=== PATIENT | male | born 1950 | race Caucasian/White ===

== ENCOUNTER 2019-02-26 06:43 | Inpatient (IN) | payer MEDICARE, BC ==
[~2019-02-26 06:43] MED LIST: CELECOXIB 100 MG CAPSULE PO ONE; FAMOTIDINE 20MG TABLET PO ONE; MECLIZINE 25 MG TABLET PO ONE; METOCLOPRAMIDE 10 MG TABLET PO ONE; VANCOMYCIN HCL 1,000 MG in DEXTROSE 5 % IN WATER 250 ML IVPB ONE
[2019-02-26 07:29] LABS: ABO GROUP A; RH TYPE NEGATIVE
[2019-02-26 07:39] LABS: ANTIBODY SCREEN NEGATIVE (NEGATIVE)
[2019-02-26] MEDS ORDERED: RINGERS SOLUTION,LACTATED 1,000 ML IV ONE ×3 (07:40→10:40)
[2019-02-26] MEDS ORDERED: BUPIVACAINE 0.5% W/EPI MPF 30 ML VIAL SQ ONE (09:47)
[2019-02-26] MEDS ORDERED: ACETAMINOPHEN 325 MG TAB PO PRN (11:19)
[2019-02-26] MEDS ORDERED: ONDANSETRON HCL IV 4 MG/2 ML VIAL IVP PRN (11:19)
[2019-02-26] MEDS ORDERED: AL HYDROX/MAG HYDROX 30ML UD PO PRN (11:19)
[2019-02-26] MEDS ORDERED: MAGNESIUM HYDROXIDE 30 ML UDC PO PRN (11:19)
[2019-02-26] MEDS ORDERED: TRAMADOL HCL 50 MG TABLET PO PRN (11:19)
[2019-02-26] MEDS ORDERED: NALOXONE 0.4 MG/1 ML VIAL IVP PRN (11:19)
[2019-02-26] MEDS ORDERED: DIPHENHYDRAMINE HCL 25 MG CAPSULE PO PRN (11:19)
[2019-02-26] MEDS ORDERED: HYDROMORPHONE HCL 2 MG/ML VIAL IM PRN (11:19)
[2019-02-26] MEDS ORDERED: KETOROLAC 30 MG/ML VIAL IVP PRN ×2 (11:19)
[2019-02-26] MEDS ORDERED: ACETAMINOPHEN W/ CODEINE 300MG/60MG TABLET PO PRN ×2 (11:19)
[2019-02-26] MEDS ORDERED: ZOLPIDEM TARTRATE 5 MG TABLET PO PRN (11:19)
[2019-02-26] MEDS ORDERED: HYDROCODONE/APAP 7.5/325MG TABLET PO PRN ×2 (11:19)
[2019-02-26] MEDS ORDERED: BISACODYL 10 MG SUPP RC PRN (11:19)
[2019-02-26] MEDS ORDERED: PANTOPRAZOLE SODIUM 40 MG TABLET PO PRN (12:31)
[2019-02-26] MEDS ORDERED: MELATONIN 5 MG TABLET PO PRN (12:31)
[2019-02-26] MEDS ORDERED: 0.9 % SODIUM CHLORIDE 10 ML VIAL IVP ONE ×2 (13:57→14:00)
[2019-02-26] MEDS ORDERED: ROPIVACAINE HCL (NAROPIN) /PF 5MG/ML 20ML VIAL IV ONE (13:57)
[2019-02-26] MEDS ORDERED: DEXAMETHASONE 4 MG/ML 1ML VIAL IVP ONE (13:57)
[2019-02-26] MEDS ORDERED: LIDOCAINE 2% MDV (20MG/ML) 20ML VIAL IV ONE (14:00)
[2019-02-26] MEDS ORDERED: MIDAZOLAM HCL 2MG/2ML VIAL IV ONE (14:00)
[2019-02-26] MEDS ORDERED: TRANEXAMIC ACID 1,000 MG/10 ML ML IV ONE ×2 (14:00→16:07)
[2019-02-26] MEDS ORDERED: PROPOFOL 10 MG/ML VIAL IV ONE (14:00)
[2019-02-26] MEDS: MIDODRINE HCL 5 MG TABLET PO SCH ×2 (15:06→22:24)
--- NOTE | 2019-02-26 15:06 | Rehab Evaluation ---
Patient Information - Patient Information Diagnosis: DJD R Hip Ordered Treatment: PT Evaluate and Treat Status: Initial Evaluation Surgery: Yes (R URBAN) Date of Surgery: 02/26/19 Past Medical/Surgical Hx: PAST MEDICAL/SURGICAL HISTORY Past Surgical History LEFT SHOULDER REPLACEMENT 12-07-18 HELLERS MYOTOMY 2018 TURP LIPOMA? 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 RTKA LEFT SHOULDER SCOPES X'S 2 RIGHT SHOULDER SCOPE LEFT ANKLE AND FOOT SX PMH - Respiratory Hx Respiratory Disorders Yes Hx Bronchitis Yes: NOTHING RECENT Hx Pneumonia Yes: 30 YRS AGO PMH - Cardiovascular Hx Cardiovascular Disorders Yes Hx Cardiac Catheterization Yes Hx Hypotension Yes: BLOOD PRESSURE RUNS LOW ON MEDS TO STABALIZE IT WITH GOOD CONTROL Hx Heart Murmur Yes Hx of Mitral Valve Prolapse Yes: MONITORED YEARLY NO ISSUES Exercise Tolerance Good Comment: PT HAS HAD SYNCOPAL EPISODES FROM HYPOTENSION NOTHING LATELY SINCE ON MEDS PMH - Neuro Hx Neurological Disorders Yes Hx Speech Problem Yes: SLOW SPEECH STUTTERS SOME PMH - GI Hx Gastrointestinal Disorders Yes Hx Gastroesophageal Reflux Yes: ONCE IN A WHILE Hx Ulcer Yes: 25 YRS AGO Comment: PT W GASTRIC SLEEVE DEVELOPED PROBS WHERE HE COULDNT EAT HAD HELLERS MYOTOM PMH - Hx Genitourinary Disorders Yes Hx Prostate Problems Yes: BPH HAD TURP HAS TO SELF CATH AT TIMES Hx Renal Disease Yes: HX ACUTE RENAL FAILURE 1 1/2 YRS AGO D/T 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 Patient has 2 steps in the garage to enter the home with no railings. Patient also reports that he has a basement with 10-12 steps without a railing but does not use the basement. Patient reports that bathroom that he is utilizing has a walk in shower with a shower chair; however, there are no grab bars. Patient reports that the toilet is standard height with no grab bars. Patient reports that he has a 2-wheeled walker and 2 canes that he keeps in the trunk of his SUV. Patient plans on leaving in [facility] following discharge. Currently no physical therapy following discharge is set at this time.) Precautions: Other (Total hip precautions) - Time With Patient Total Time Spent With Patient (Min): 15 Subjective Information - Subjective Information Per Patient (Patient reported that he was not experiencing any pain, lightheadedness, or dizziness upon evaluation. Patient did report that he was slightly numb on right foot during initial encounter at 2:30 p.m. Upon return at 3:30 p.m., patient reported that his feeling had returned and still reported no pain.) Objective Data - Pain Pain Present: No (Patient reported no pain throughout session.) - Mental Status Patient Orientation: Oriented x3 - ROM Not within normal limits (Patient's range of motion is limited in right lower extremity due to s/p surgery and hip precautions. Patient's left lower extremity appeared within functional limits assessed with bed mobility, sit to stand transfer, and ambulation.) - Strength/Tone Not within normal limits (Patient's right lower extremity was limited due to s/p surgery, as expected. Patient's strength in lower extremities were assessed functionally with bed mobility, sit to stand transfer, and ambulation.) - Bed Mobility Independent (Patient completed transfer from supine to R EOB with supervision assistance x1. Patient required verbal cueing for hip precautions and guidance with right lower extremity due to s/p surgery, as expected.) - Transfers Independent (Patient completed sit to stand transfer from R EOB with CGAx2 with 2-wheeled walker for support. Patient is impulsive and requires consistent verbal cueing to slow down and use proper hand placement for safety. Upon return from standing to sitting R EOB, patient attempted to ambulate without 2-wheeled walker for support but was educated on importance of using assistive device at this time. Patient was supervision x2 assistance for returning transfer.) - Gait Detail (Patient ambulated total of 91 feet using 2-wheeled walker with CGAx1 for safety. Patient was reminded 2x during ambulation to not twist on hip to maintain hip precautions. Patient demonstrated decreased heel strike and antalgic gait pattern as expected due to being s/p surgery.) Therapy Assessment - Therapy Assessment Detail (Patient did well with therapy, but was impulsive and required consistent reminders to slow down with transfers due to safety concerns. Patient completed bed mobility transfers from supine to sitting and returning back to supine in bed with supervision x2 with reminders of hip precautions throughout. Patient required CGAx1 with sit to stand transfers due to safety and required verbal cueing for hand placement. Patient ambulated total of 91 feet with CGAx1 for safety with two verbal reminders of maintaining hip precautions during ambulation. Patient was returned to R EOB but wanted to ambulate without walker and was reminded to hold on to 2-wheeled walker throughout transfer for safety. Patient then was supervision x1 for transfer from sitting R EOB to supine. Patient would benefit from additional session to address stairs and home exercises. Additional assessment of patient's adherence to hip precautions and safety throughout transfers would be beneficial to ensure that patient is safe during discharge home.) Patient Education - Patient Education Teaching Topic: Precautions (Patient was educated on hip precautions and the importance to adhering to them. Patient was also educated on importance of safe transfers to prevent future potential falls.) Problem List - Problem List Physical Therapy Problem List: Detail (1. Decreased range of motion of right lower extremity due to s/p surgery. 2. Decreased strength of right lower extremity due to s/p surgery. 3. Altered gait pattern due to compensation over time due to pain. 4. Decreased safety awareness and impulsiveness with transfers leading to potential fall risk.) Goals - Goals Physical Therapy Goals: 1. Patient will ambulate 2 stairs with one hand support prior to discharge to aide in transition home. 2. Patient will be independent with home exercises. 3. Patient will adhere to hip precautions without verbal reminders or cueing prior to discharge home. 4. Patient will demonstrate proper hand placement during transfers to maximize patient's safety and decrease potential fall risk. Prognosis - Prognosis Good (Patient overall did well with ambulation and was independent with bed mobility. However, patient showed decreased compliance with hip precautions and safety awareness during transfers. Therefore, if patient shows improvement in awareness of precautions and importance of safe transfers, patient is projected to progress.) Plan - Plan Physical Therapy Plan: PT for 1-2 visit to assess patient's stair mobility, home exercise program, and adherence to hip precautions prior to discharge home is strongly recommended.
[2019-02-26] MEDS: POTASSIUM CHLORIDE/D5-0.9%NACL 20 MEQ/1,000 ML BAG IV SCH ×2 (18:31→20:30)
[2019-02-26] MEDS: VANCOMYCIN HCL 1,000 MG in DEXTROSE 5 % IN WATER 250 ML IVPB SCH ×2 (20:26)
[2019-02-26] MEDS ORDERED: AMITRIPTYLINE 25 MG TABLET PO SCH (22:00)
[2019-02-26] MEDS: DOCUSATE SODIUM 100 MG CAPSULE PO SCH (22:24)
[2019-02-26] MEDS: CIPROFLOXACIN HCL 500 MG TABLET PO SCH (22:26)
[2019-02-27] MEDS: POTASSIUM CHLORIDE/D5-0.9%NACL 20 MEQ/1,000 ML BAG IV SCH ×2 (06:14→12:11)
[2019-02-27] MEDS: MIDODRINE HCL 5 MG TABLET PO SCH ×2 (06:33→14:01)
[2019-02-27] MEDS: CIPROFLOXACIN HCL 500 MG TABLET PO SCH (06:33)
[2019-02-27 06:57] LABS: HEMATOCRIT 31.6 % (42.0-52.0); HEMOGLOBIN 9.7 gm/dl (14.0-18.0)
[2019-02-27 07:15] LABS: BLOOD UREA NITROGEN 16 mg/dL (8-23); CREATININE 0.9 mg/dL (0.7-1.2); EST GLOMERULAR FILTRATION RATE > 60 mL/min; GLUCOSE,RANDOM 113 mg/dL (74-109)
[2019-02-27] MEDS: VANCOMYCIN HCL 1,000 MG in DEXTROSE 5 % IN WATER 250 ML IVPB SCH ×2 (08:22)
[2019-02-27] MEDS ORDERED: RIVAROXABAN 10 MG TABLET PO SCH (10:00)
[2019-02-27] MEDS ORDERED: ASPIRIN 81 MG TABEC PO SCH (10:00)
[2019-02-27] MEDS ORDERED: FERROUS SULFATE 325 MG TAB PO SCH (10:00)
[2019-02-27] MEDS ORDERED: ATORVASTATIN 20 MG TABLET PO SCH (10:00)
[2019-02-27] MEDS ORDERED: CHOLECALCIFEROL 1,000 UNIT TABLET PO SCH (10:00)
[2019-02-27] MEDS ORDERED: MULTIVITAMINS/MINERALS TABLET PO SCH (10:00)
[2019-02-27] MEDS ORDERED: PAROXETINE HCL 10 MG TABLET PO SCH (10:00)
[2019-02-27] MEDS: DOCUSATE SODIUM 100 MG CAPSULE PO SCH (12:08)
--- NOTE | 2019-02-27 12:40 | Rehab Evaluation ---
Patient Information - Patient Information Diagnosis: OA R Hip Ordered Treatment: OT Evaluate and Treat Status: Initial Evaluation Surgery: Yes (R URBAN) Date of Surgery: 02/26/19 Past Medical/Surgical Hx: PAST MEDICAL/SURGICAL HISTORY Past Surgical History LEFT SHOULDER REPLACEMENT 12-07-18 RTKA LEFT SHOULDER SCOPES X'S 2 RIGHT SHOULDER SCOPE LEFT ANKLE AND FOOT SX PMH - Respiratory Hx Respiratory Disorders Yes Hx Bronchitis Yes: NOTHING RECENT Hx Pneumonia Yes: 30 YRS AGO PMH - Cardiovascular Hx Cardiovascular Disorders Yes Hx Cardiac Catheterization Yes Hx Hypotension Yes: BLOOD PRESSURE RUNS LOW ON MEDS TO STABALIZE IT WITH GOOD CONTROL Hx Heart Murmur Yes Hx of Mitral Valve Prolapse Yes Exercise Tolerance Good Comment: PT HAS HAD SYNCOPAL EPISODES FROM HYPOTENSION NOTHING LATELY SINCE ON MEDS PMH - Neuro Hx Neurological Disorders No Hx Speech Problem Yes: SLOW SPEECH STUTTERS SOME PMH - GI Hx Gastrointestinal Disorders Yes Hx Gastroesophageal Reflux Yes: ONCE IN A WHILE Hx Ulcer Yes: 25 YRS AGO Comment: PT W GASTRIC SLEEVE DEVELOPED PROBS WHERE HE COULDNT EAT HAD HELLERS MYOTOM PMH - Hx Genitourinary Disorders No Hx Prostate Problems Yes: BPH HAD TURP HAS TO SELF CATH AT TIMES Hx Renal Disease Yes: HX ACUTE RENAL FAILURE 1 1/2 YRS AGO D/T COMPLICATIONS FROM GASTRIC SLEEVE PMH - Endocrine Hx Endocrine Disorders No PMH - Musculoskeletal Hx Musculoskeletal Disorders Yes Hx Arthritis Yes: SEVERE OA PMH - Psych Hx Psychiatric Problems Yes Hx Depression Yes: 20-30 YRS AGO PMH - Hematology/Oncology Hx Hematology/Oncology No Disorders Premorbid Status: Detail (Pt was indep. with all ADLs and mobility prior to Sx. He is [place]. He lives in one story house with spouse. 2 DINO without railings. Patient has no need to negotiate stairs to basement as completes laundry. H is bathroom has a walk in shower with a shower chair and grab bars and a standard height with no grab bars. He has a 2WW and 2 canes.) Social History: Detail (Pt lives with spouse who is retired and able to assist as needed at [place].) Precautions: [place], Fall, Other (FWB, posterior hip prec.) - Time With Patient Total Time Spent With Patient (Min): 52 (1 eval, 1 ADL) Treatment Procedures: Detail (OT eval: low complexity) Subjective Information - Subjective Information Per Patient (Ok to see per RN Emy. Pt agreeable to OT eval and Tx, supine in bed upon arrival.) Objective Data - Pain Pain Present: No - Mental Status Patient Orientation: Oriented x3 - Visual Perception Appears within normal limits for therapeutic activities - ROM Not within normal limits - Strength/Tone Not within normal limits (Bilat rotator cuff and shld Sx, <10# lifting restriction.) - Coordination Appears within normal limits for therapeutic activities - Bed Mobility Independent (supine > EOB) - Transfers Independent (sit >< stand from elevated surfaces to FWW with MOD I, supervision - verbal instruction for mod. tech. for sit >< stand from lower surfaces to emulate std. toilet at home, however rec. toilet riser for safety wit hip prec at DC.) - Balance Balance Sitting: Good Balance Standing: Good, Fair (standing pant mgmt with occassional uni support on FWW) - Sensation Intact - Gait Detail (Fxl amb within bedroom with FWW, initial supervision - verbal i nstruction for technique to maintain hip prec - no twisting - progressing to MOD I with FWW.) - ADL's/IADL's Detail (OT educ. Pt on LB dressing with AE, Pt doffs/dons underwear, socks, pants, and shirt with supervision (verbal instruction and demonstration) progressing to MOD I. OT educ. Pt and demo'd simulated toilet/tub/car TF to maintain URBAN prec., Pt demos and verbalizes understanding. OT also educ. Pt on home mods to increase safety and prevent further injury, Pt verbalizes understanding.) Therapy Assessment - Therapy Assessment Detail (Pt demos safety and indep. with with LB dressing and fxl TFs, verbalizes safe tech with home tasks with good safety awareness end of session. Verbalizes 3/3 hip prec.) Patient Education - Patient Education Teaching Topic: Precautions, Other (ADL and fxl TF training) Response: Return Demonstration, Verbalize Understanding Teaching Method: Discussion, Demonstration Teaching Recipient: Patient Barriers To Learning: None, Other (slight cog deficits noted) Problem List - Problem List Physical Therapy Problem List: Detail (1. Decreased range of motion of right lower extremity due to s/p surgery. 2. Decreased strength of right lower extremity due to s/p surgery. 3. Altered gait pattern due to compensation over time due to pain. 4. Decreased safety awareness and impulsiveness with transfers leading to potential fall risk.) Occupational Therapy Problem List: Detail (No further inpatient OT needs identified.) Goals - Goals Physical Therapy Goals: 1. Patient will ambulate 2 stairs with one hand support prior to discharge to aide in transition home. 2. Patient will be independent with home exercises. 3. Patient will adhere to hip precautions without verbal reminders or cueing prior to discharge home. 4. Patient will demonstrate proper hand placement during transfers to maximize patient's safety and decrease potential fall risk. Occupational Therapy Goals: No further inpatient OT needs/goals identified. Prognosis - Prognosis Good Plan - Plan Physical Therapy Plan: PT for 1-2 visit to assess patient's stair mobility, home exercise program, and adherence to hip precautions prior to discharge home is strongly recommended. Occupational Therapy Plan: No further inpatient OT needs/goals identified, [facility] OT. Thank you for this referral.
--- NOTE | 2019-02-27 16:01 | Physical Therapy Tx Note ---
Physical Therapy Tx Note - Treatment Note Tolerated: Good Total Time Spent With Patient: 40 Physical Therapy Tx Note: Detail (The patient was up in chair when PT arrived. The patient was independent with sit to and from stand transfer with verbal cues to push up from chair and to use walker when turning to sit. The patient ambulated in the am 90 feet x 1 with front wheeled walker with supervision for safety WBAT on the R LE. The patient declined ambulating on the stairs in the am. The patient completed THR exercises including: ankle pumps, heel slides, quad sets, glut sets, hamstring sets and hip abduction. In the afternoon the patient ambulated 90 feet with minimal complaints of R hip pain with front wheeled walker WBAT on the R LE independently. The patient ambulated on 3 stairs with use of one railing and folded walker with supervision for safety. The alexei ent has met all inpatient goals and is discharged from inpatient PT.) Physical Therapy Problem List: Detail (1. Decreased range of motion of right lower extremity due to s/p surgery. 2. Decreased strength of right lower extremity due to s/p surgery. 3. Altered gait pattern due to compensation over time due to pain. 4. Decreased safety awareness and impulsiveness with tr ansfers leading to potential fall risk.) Physical Therapy Goals: 1. Patient will ambulate 2 stairs with one hand support prior to discharge to aide in transition home. (Goal Met). 2. Patient will be independent with home exercises. (Goal Met). 3. Patient will adhere to hip precautions without verbal reminders or cueing prior to discharge home. (Goal Met). 4. Patient will demonstrate proper hand placement during transfers to maximize patient's safety and decrease potential fall risk. (Goal partially met- inconsistent but improved). Physical Therapy Plan: The patient is discharged from PT to home. The patient is to receive Home PT.
--- NOTE | 2019-02-28 08:40 | Operative Note ---
DATE OF SURGERY: 02/26/2019 PREOPERATIVE DIAGNOSIS: End-stage arthrosis of the right hip. POSTOPERATIVE DIAGNOSIS: End-stage arthrosis of the right hip. OPERATION: Cementless right total hip arthroplasty using Flores and Nephew components with a size 56 no-hole Reflection cup, 32 mm diameter 35-degree offset liner, a size 14 high-offset cementless Jessie stem with a +8 32 mm diameter cobalt chrome head. STAFF SURGEON: Rashi Berrios MD ANESTHESIA: Spinal. PREPARATION: Chloraprep. INDIVIDUAL CONSIDERATIONS: None. PROCEDURE: The patient was taken to the operating room, placed supine on the operating room table. He had a successful induction of spinal anesthetic. He was then placed on his side right side up, and his right leg and hip were prepped and draped in the usual fashion. The patient had direct posterior approach to the hip. Sharp dissection carried down through skin and subcutaneous tissues. Small veins were coagulated with a Bovie. The tensor gluteal fascia was opened along the entire length of the incision, and deep retractors were placed. Short external rotators were identified, piriformis fossa removed exposing the posterior capsule. Posterior capsulectomy was performed. Hip was dislocated posteriorly. He had exposed bone throughout the head with marginal osteophytes. A femoral neck cut was then made about a fingerbreadth about the lesser troch with an oscillating saw, and a rim capsulectomy was performed. He had a very thick medial wall, and starting with a 45 mm reamer to get the osteophyte off, I reamed to the introitus, and that was a size 55 for a 56 cup. I slightly under-reamed to 54. After thorough irrigation, I impacted a size 56 no-hole Reflection cup in 20 degrees of forward flexion and about 40 degrees of abduction using the extraarticular alignment guide and bony landmarks. There was solid cementless fixation. I placed a center cap screw and then impacted the 32 mm diameter 35-degree offset liner. There was solid fixation. This was irrigated and packed off. The proximal femur was delivered into the wound, and box cutting osteotome was used to remove the proximal metaphyseal bone. Mid stem reaming was done to a size 14. I started feeling cortex between 12-13. Broached to 14, dialed anteversion to a natural angle which is about 25-30 degrees. After calcar reaming, a high-offset +8 gave me stability. I removed the trial, irrigated, and then packed a high-offset size 14 cementless Jessie stem with solid cementless fixation and solid calcar contact. I again trialed the +8. There was normal shuck. I had absolute stability, full anterior stability in extension and internal rotation. I fully flexed him to his abdomen and internally rotated even to 30-40 degrees. Full stability. At 90 degrees of flexion and 90 degrees of internal rotation and adduction, I still had stability. I then went ahead and irrigated out, dried the Tate taper, and impacted a 32 mm diameter cobalt chrome head on the Tate taper, reduced the hip. It was a +8. Similar stability. Hemostasis was obtained with a Bovie. Sciatic nerve was inspected and found to be completely intact. I mixed 1 g of tranexamic acid with 30 mL of saline and placed this deep in the fascia. The tensor gluteal fascia was then closed with a running #2 quill, subcu was closed in layers with running 0 quill, skin was closed with rodrigo. I did infiltrate the skin and subcutaneous tissue with 30 mL of 0.5% Marcaine with epinephrine. Sterile bulky compressive RXOANA-type dressing was applied. The patient tolerated the procedure well. Needle and sponge counts were correct. Estimated blood loss was about 400 mL. We will check hemoglobin in the morning. There were no complications. JUNI
--- NOTE | 2019-02-28 08:50 | Discharge Summary ---
DATE OF ADMISSION: 02/26/2019 DATE OF SURGERY: 02/26/2019 DATE OF DISCHARGE: 02/27/2019 HISTORY: The patient is a 68-year-old male who presents with end-stage arthrosis of his right hip. He was admitted after right total hip arthroplasty. Postoperatively he did well. He had some urinary retention which resolved. He has done self-cath in the past. He was able to void after a straight cath. His hospital course was unremarkable. He was independent with therapy the night of surgery. He was discharged. Hemoglobin was 9.7 and did not require transfusion. The plan is to discharge him home in the care of his family. Home PT visiting nurse has been arranged. Given Marion for pain, Xarelto followed by aspirin for DVT prophylaxis. I am going to cover him with Cipro because of his urethral instrumentation for a couple of weeks. He will follow up in my office in a month. Visiting nurse will remove his sutures in 2 weeks. FINAL DIAGNOSIS: End-stage arthrosis of the right hip. SECONDARY DIAGNOSES: 1. Operative blood loss anemia. 2. Urinary retention, resolved. PROCEDURE: Cementless right total hip arthroplasty. CC: [facility]ill[facility] Flores [facility]
== END 2019-02-27 13:50 | disposition home health service (06) | DRG 470 ==
LOC: MEDSURG 06:43
PROVIDERS: ADMIT Orthopaedic Surgery; ATTEND Orthopaedic Surgery
PROC: 0SR906A Replacement of Right Hip Joint with Oxidized Zirconium on Polyethylene Synthetic Substitute, Uncemented, Open Approach (ICD-10-PCS; principal; 2019-02-26 09:00)
DX: M16.11 Unilateral primary osteoarthritis, right hip (principal); N17.9 Acute kidney failure, unspecified; I95.9 Hypotension, unspecified; E78.00 Pure hypercholesterolemia, unspecified; R41.0 Disorientation, unspecified; Z91.81 History of falling
CPT/HCPCS: 76942; 80048; 85014; 85018; 86850; 86900; 86901; 97110; 97535; C1776; J3480; J7060; J7120